=== PATIENT | male | born 1975 | race Caucasian/White ===

== ENCOUNTER 2018-03-24 09:13 | Day surgery (SDC) | payer OTHER ==
[~2018-03-24 09:13] MED LIST: ATROPINE 1 MG/10 ML SYRINGE IV; CEFAZOLIN 1 GM INJ; CEFAZOLIN 1 GM/50 ML (PMX) 50 ML IVPB; DIPHENHYDRAMINE 50 MG INJ IV; EPHEDrine SULFATE 50 MG/5 ML SYG IV; FENTAnyl 50 MCG/ML VIAL IV; HYDROmorphONE (0.2 MG/ML) 10ML SYG IV; LABETALOL HCL 20MG INJ IV; MEPERIDINE 25 MG INJ IV; MIDAZOLAM 1 MG/ML 2 ML INJ IV; ONDANSETRON 4 MG INJ IV; OXYCODONE/ACETAMINOPHEN (5/325) TAB PO; SOD CHLORIDE 0.9% 1,000 ML IV; hydrALAzine 20 MG INJ IV; morphine (1 MG/ML) 10ML SYRINGE IV
[2018-03-24] MEDS ORDERED: FENTAnyl 50 MCG/ML VIAL (09:38)
[2018-03-24] MEDS ORDERED: PROPOFOL 20 ML (09:38)
[2018-03-24] MEDS ORDERED: MIDAZOLAM 1 MG/ML 2 ML INJ (09:38)
[2018-03-24] MEDS ORDERED: ONDANSETRON 4 MG INJ (09:38)
[2018-03-24] MEDS ORDERED: NEOSTIGMINE 3 MG/3 ML SYRINGE (09:38)
[2018-03-24] MEDS ORDERED: ROCURONIUM 50 MG INJ (09:38)
[2018-03-24] MEDS ORDERED: GLYCOPYRROLATE 0.4 MG INJ (09:38)
[2018-03-24] MEDS ORDERED: LIDOCAINE 2% (SDV) 5 ML INJ (09:38)
[2018-03-24] MEDS ORDERED: DEXAMETHASONE 4 MG/ML 1 ML INJ (09:38)
[2018-03-24] MEDS: BUPIVACAINE 0.25% (MPF) 30 ML INJ (11:06)
[2018-03-24] MEDS: BUPIVACAINE 0.5% (SDV) 30 ML INJ (12:27)
[2018-03-24] MEDS: LIDOCAINE 2% (MDV) 20 ML INJ (12:27)
[2018-03-24] MEDS ORDERED: HYDROCODONE/APAP (5/325) TAB PO (12:30)
== END 2018-03-24 13:32 | disposition home or self-care (01) ==
LOC: SDS 09:13
DX: D17.1 Benign lipomatous neoplasm of skin and subcutaneous tissue of trunk (principal); F17.200 Nicotine dependence, unspecified, uncomplicated
CPT/HCPCS: 14001; 88307